=== PATIENT | female | born 1990 | race Caucasian/White ===

== ENCOUNTER 2017-10-25 06:49 | Emergency (ER) | payer BC ==
[~2017-10-25] VITALS: Ht 154.9 cm; Wt 54.4 kg
--- NOTE | 2017-10-25 07:09 | Emergency Room Report ---
History of Present Illness General Chief Complaint: Eye Problems Source: Patient Present Illness HPI Patient is a 27-year-old female who presented after increased left eye foreign body sensation. Patient had the onset of symptoms approximately 4 hours prior to arrival. Patient reported having increased redness as well as increased difficulty opening her eye. She denies any definite foreign body. She reports having some eye irritation. She denies any contact lens use. She denies visual changes. Allergies: Coded Allergies: No Known Allergies (Unverified , 10/25/17) Patient History Past Medical History: see triage record Last Menstrual Period: unknown Now: No : 0 Para: 0 Reviewed Nursing Documentation: PMH: Agreed, PSxH: Agreed Nursing Documentation-PMH Hx Asthma: Yes Review of Systems All Other Systems: negative except mentioned in HPI Physical Exam Vital Signs Date Time Temp Pulse Resp B/P (MAP) Pulse Ox O2 Delivery O2 Flow Rate FiO2 10/25/17 06:53 98.2 97 17 123/82 100 Room Air General Appearance: well appearing, no apparent distress, alert, GCS 15 Head: normocephalic, atraumatic Eyes: bilateral eye PERRL, bilateral eye other - left eye conjunctival erythema no exudate ENT: hearing grossly normal, normal voice Neck: full range of motion, supple Respiratory: no respiratory distress, speaking full sentences Musculoskeletal: no calf tenderness Neurologic: normal gait Psychiatric: mood/affect normal Skin: no rash Medical Decision Making Diagnostic Impression: Primary Impression: Conjunctivitis ER Course Patient presented for left eye redness. Differential diagnosis included but wasn't limited to glaucoma, iritis, corneal abrasion, bacterial conjunctivitis, viral conjunctivitis. Patient's benign exam and does not appear to require any further imaging or laboratory testing at this time. The patient's fluorescein exam showed no evidence of corneal foreign body the patient was noted to have some mascara the lower lid which was removed with a cotton swab. The patient's eye was irrigated with saline. As she is given prescription for topical antibiotics. The patient is advised to follow up with primary care doctor in 1-2 days. Patient is advised to return if any worsening condition or if any changes in status that are concerning. 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 Last Vital Signs Date Time Temp Pulse Resp B/P (MAP) Pulse Ox O2 Delivery O2 Flow Rate FiO2 10/25/17 06:53 98.2 97 17 123/82 100 Room Air Status: improved Disposition: HOME, SELF-CARE Condition: Stable Scripts Gentamicin Sulfate (GENTAK) 3.5 Gm Oint...g. 3.5 GM OP THREE TIMES A DAY, #2.5 GM Prov: Bola Wallis 10/25/17 Bola Wallis Oct 25, 2017 07:09
[2017-10-25] MEDS ORDERED: Tetracaine 0.5% Opth 4ml Soln LEFT EYE ONE (07:15)
[2017-10-25] MEDS ORDERED: Fluorescein Strips LEFT EYE ONE (07:15)
[2017-10-25] MEDS ORDERED: GENTAK3.5 GM OP (07:20)
[2017-10-25 07:35] VITALS: BP 123/82
== END 2017-10-25 07:35 | disposition home or self-care (01) ==
LOC: EMR 07:20
DX: H10.9 Unspecified conjunctivitis (principal); J45.909 Unspecified asthma, uncomplicated
CPT/HCPCS: 99283